=== PATIENT | female | born 1985 | race Caucasian/White ===

== ENCOUNTER 2019-04-25 14:48 | Emergency (ER) | payer MEDICAID ==
[~2019-04-25] VITALS: Ht 170.2 cm; Wt 88.6 kg
[2019-04-25 14:59] VITALS: Ht 170.2 cm; Wt 88.6 kg
[2019-04-25] MEDS ORDERED: OMNICEF300 MG PO (15:01)
[2019-04-25] MEDS ORDERED: TAMIFLU75 MG PO (15:01)
[2019-04-25] MEDS ORDERED: NAPROSYN500 MG PO (15:02)
[2019-04-25] MEDS ORDERED: BUTALB-APAP-CA1 EACH PO (15:03)
[2019-04-25] MEDS ORDERED: OXYBUTYNIN CHLOR5 MG PO (15:03)
[2019-04-25] MEDS ORDERED: MOBIC7.5 MG PO (15:03)
[2019-04-25 16:01] LABS: BASOPHILS 0.2 % (0-2); EOSINOPHILS 1.1 % (0-7); HEMATOCRIT 38.4 % (36.0-48.0); HEMOGLOBIN 13.4 g/dL (12-16); IMMATURE GRANULOCYTES 0.2 % (0-5); MCH 31.2 pg (26.0-34.0); MCHC 34.9 g/dL (31.0-37.0); MCV 89.5 fL (80.0-100.0); MONOCYTES 9.3 % (2-11); NEUTROPHILS 43.2 % (40-80); PLATELET COUNT 200 10x3/uL (130-400); RBC 4.29 10x6/uL (4.00-5.40); RDW 12.1 % (11.5-14.5); WBC 6.2 10x3/uL (4.8-10.8)
[2019-04-25 16:02] LABS: APPEARANCE CLEAR (CLEAR); BILIRUBIN NEGATIVE (NEGATIVE); COLOR STRAW (YELLOW); GLUCOSE NEGATIVE (NEGATIVE); KETONE NEGATIVE (NEGATIVE); NITRITE NEGATIVE (NEGATIVE); PROTEIN NEGATIVE (NEGATIVE); SPECIFIC GRAVITY 1.005 (1.005-1.020); UROBILINOGEN NORMAL (NORMAL)
[2019-04-25 16:12] LABS: CALC OSMOLALITY 281 mosm/kg (275-300); CARBON DIOXIDE 30.1 mmol/L (21.0-32.0); CHLORIDE - SERUM 106 mmol/L (98-107); CREATININE - SERUM 0.5 mg/dL (0.6-1.3); GLUCOSE 88 mg/dL (74-106); POTASSIUM - SERUM 3.7 mmol/L (3.5-5.1); SODIUM 143 mmol/L (136-145); UREA NITROGEN 7 mg/dL (7-18); eGFR NON AFRICAN AMERICAN > 90 mL/min (90-120)
[2019-04-25 16:19] LABS: ALKALINE PHOSPHATASE 72 U/L (46-116); ALT (SGPT) 26 U/L (10-68); BILIRUBIN - TOTAL 0.42 mg/dL (0.2-1.3); CREATINE KINASE 75 UL (21-215); PROTEIN - SERUM 7.5 g/dL (6.4-8.2)
[2019-04-25] MEDS ORDERED: ROBITUSSIN DM 110 ML PO (17:30)
[2019-04-25] MEDS ORDERED: PREDNISONE20 MG PO (17:30)
[2019-04-25 18:40] VITALS: BP 140/93
== END 2019-04-25 18:40 | disposition home or self-care (01) ==
LOC: D.ER 14:48
PROVIDERS: Family Medicine
DX: J02.9 Acute pharyngitis, unspecified (principal); H66.93 Otitis media, unspecified, bilateral

== ENCOUNTER 2019-04-29 19:25 | Emergency (ER) | payer MEDICAID ==
[~2019-04-29] VITALS: Ht 170.2 cm; Wt 88.6 kg
[~2019-04-29 19:25] MED LIST: BUTALB-APAP-CA1 EACH PO; MOBIC7.5 MG PO; NAPROSYN500 MG PO; OMNICEF300 MG PO; OXYBUTYNIN CHLOR5 MG PO; PREDNISONE20 MG PO; ROBITUSSIN DM 110 ML PO; TAMIFLU75 MG PO
[2019-04-29 19:45] VITALS: Ht 170.2 cm; Wt 88.6 kg
[2019-04-29 20:17] LABS: BASOPHILS 0.2 % (0-2); EOSINOPHILS 0.7 % (0-7); HEMATOCRIT 40.2 % (36.0-48.0); HEMOGLOBIN 14.3 g/dL (12-16); IMMATURE GRANULOCYTES 0.7 % (0-5); LYMPHOCYTES 48.9 % (15-50); MCH 31.6 pg (26.0-34.0); MCHC 35.6 g/dL (31.0-37.0); MCV 88.7 fL (80.0-100.0); MONOCYTES 8.7 % (2-11); NEUTROPHILS 40.8 % (40-80); RBC 4.53 10x6/uL (4.00-5.40); RDW 12.3 % (11.5-14.5); WBC 9.1 10x3/uL (4.8-10.8)
[2019-04-29 20:28] LABS: PLATELET COUNT 256 10x3/uL (130-400)
[2019-04-29 20:34] LABS: CALC OSMOLALITY 281 mosm/kg (275-300); CALCIUM 9.2 mg/dL (8.5-10.1); CARBON DIOXIDE 27.2 mmol/L (21.0-32.0); CHLORIDE - SERUM 106 mmol/L (98-107); CREATININE - SERUM 0.6 mg/dL (0.6-1.3); GLUCOSE 85 mg/dL (74-106); POTASSIUM - SERUM 3.6 mmol/L (3.5-5.1); SODIUM 143 mmol/L (136-145); UREA NITROGEN 8 mg/dL (7-18); eGFR NON AFRICAN AMERICAN > 90 mL/min (90-120)
[2019-04-29 20:39] LABS: ALBUMIN 4.1 g/dL (3.4-5.0); ALKALINE PHOSPHATASE 72 U/L (46-116); ALT (SGPT) 30 U/L (10-68); AMYLASE - SERUM 37 U/L (25-115); BILIRUBIN - TOTAL 0.48 mg/dL (0.2-1.3); LIPASE 104 U/L (73-393); PROTEIN - SERUM 7.7 g/dL (6.4-8.2); TROPONIN-I < 0.017 ng/mL (0.000-0.060)
[2019-04-29 22:36] LABS: APPEARANCE CLEAR (CLEAR); BILIRUBIN NEGATIVE (NEGATIVE); COLOR YELLOW (YELLOW); GLUCOSE NEGATIVE (NEGATIVE); KETONE NEGATIVE (NEGATIVE); NITRITE NEGATIVE (NEGATIVE); PROTEIN NEGATIVE (NEGATIVE); UROBILINOGEN NORMAL (NORMAL)
[2019-04-29 22:38] LABS: BACTERIA FEW /hpf (NEGATIVE); EPITHELIAL CELLS 0-5 /hpf (0-5); HCG URINE NEGATIVE (NEGATIVE); RED CELLS - URINE OCC /hpf (0-5)
[2019-04-29] MEDS ORDERED: MACROBID100 MG PO (23:52)
[2019-04-29] MEDS ORDERED: TORADOL10 MG PO (23:52)
[2019-04-29 23:58] VITALS: BP 141/87
== END 2019-04-30 01:12 | disposition home or self-care (01) ==
LOC: D.ER 19:25
PROVIDERS: Family Medicine
DX: G43.909 Migraine, unspecified, not intractable, without status migrainosus (principal); R10.11 Right upper quadrant pain; N39.0 Urinary tract infection, site not specified

== ENCOUNTER 2019-05-15 10:35 | Emergency (ER) | payer MEDICAID ==
[~2019-05-15] VITALS: Ht 170.2 cm; Wt 88.2 kg
[~2019-05-15 10:35] MED LIST changes: +MACROBID100 MG PO; +TORADOL10 MG PO
[2019-05-15 10:37] VITALS: Ht 170.2 cm; Wt 88.2 kg
[2019-05-15 11:45] LABS: BASOPHILS 0.2 % (0-2); EOSINOPHILS 0.8 % (0-7); HEMATOCRIT 40.1 % (36.0-48.0); HEMOGLOBIN 13.9 g/dL (12-16); IMMATURE GRANULOCYTES 0.2 % (0-5); LYMPHOCYTES 39.5 % (15-50); MCHC 34.7 g/dL (31.0-37.0); MCV 89.5 fL (80.0-100.0); MONOCYTES 8.4 % (2-11); NEUTROPHILS 50.9 % (40-80); PLATELET COUNT 267 10x3/uL (130-400); RBC 4.48 10x6/uL (4.00-5.40); RDW 12.3 % (11.5-14.5); WBC 6.5 10x3/uL (4.8-10.8)
[2019-05-15 11:55] LABS: CALC OSMOLALITY 279 mosm/kg (275-300); CALCIUM 9.1 mg/dL (8.5-10.1); CARBON DIOXIDE 28.9 mmol/L (21.0-32.0); CHLORIDE - SERUM 107 mmol/L (98-107); CREATININE - SERUM 0.6 mg/dL (0.6-1.3); GLUCOSE 79 mg/dL (74-106); POTASSIUM - SERUM 3.7 mmol/L (3.5-5.1); SODIUM 142 mmol/L (136-145); UREA NITROGEN 7 mg/dL (7-18); eGFR NON AFRICAN AMERICAN > 90 mL/min (90-120)
[2019-05-15 12:01] LABS: ALKALINE PHOSPHATASE 76 U/L (46-116); ALT (SGPT) 26 U/L (10-68); BILIRUBIN - TOTAL 0.41 mg/dL (0.2-1.3); PROTEIN - SERUM 7.6 g/dL (6.4-8.2)
[2019-05-15 12:41] LABS: APPEARANCE CLEAR (CLEAR); BILIRUBIN NEGATIVE (NEGATIVE); COLOR STRAW (YELLOW); GLUCOSE NEGATIVE (NEGATIVE); KETONE NEGATIVE (NEGATIVE); NITRITE NEGATIVE (NEGATIVE); PROTEIN NEGATIVE (NEGATIVE); UROBILINOGEN NORMAL (NORMAL)
[2019-05-15 12:42] LABS: WHITE CELLS - URINE 0-5 /hpf (NEGATIVE)
[2019-05-15 12:43] LABS: BACTERIA FEW /hpf (NEGATIVE); EPITHELIAL CELLS 0-5 /hpf (0-5)
[2019-05-15] MEDS ORDERED: CIPRO500 MG PO (13:00)
[2019-05-15 13:22] VITALS: BP 129/83
== END 2019-05-15 13:10 | disposition home or self-care (01) ==
LOC: D.ER 10:35
PROVIDERS: Emergency Medicine
DX: M54.2 Cervicalgia (principal)

== ENCOUNTER 2019-05-27 10:59 | Emergency (ER) | payer MEDICAID ==
[~2019-05-27] VITALS: Ht 170.2 cm; Wt 87.3 kg
[~2019-05-27 10:59] MED LIST changes: +CIPRO500 MG PO
[2019-05-27 11:16] VITALS: Ht 170.2 cm; Wt 87.3 kg
[2019-05-27 11:44] LABS: BASOPHILS 0.3 % (0-2); EOSINOPHILS 0.7 % (0-7); HEMATOCRIT 41.2 % (36.0-48.0); HEMOGLOBIN 14.4 g/dL (12-16); IMMATURE GRANULOCYTES 0.4 % (0-5); LYMPHOCYTES 31.7 % (15-50); MCH 31.6 pg (26.0-34.0); MCV 90.4 fL (80.0-100.0); MEAN PLATELET VOLUME 9.7 fL (7.4-10.4); MONOCYTES 7.5 % (2-11); NEUTROPHILS 59.4 % (40-80); PLATELET COUNT 255 10x3/uL (130-400); RBC 4.56 10x6/uL (4.00-5.40); RDW 12.5 % (11.5-14.5); WBC 9.8 10x3/uL (4.8-10.8)
[2019-05-27 11:49] LABS: CALC OSMOLALITY 274 mosm/kg (275-300); CALCIUM 8.9 mg/dL (8.5-10.1); CARBON DIOXIDE 28.3 mmol/L (21.0-32.0); CHLORIDE - SERUM 105 mmol/L (98-107); CREATININE - SERUM 0.6 mg/dL (0.6-1.3); GLUCOSE 89 mg/dL (74-106); POTASSIUM - SERUM 3.6 mmol/L (3.5-5.1); SODIUM 140 mmol/L (136-145); UREA NITROGEN 5 mg/dL (7-18); eGFR NON AFRICAN AMERICAN > 90 mL/min (90-120)
[2019-05-27 11:57] LABS: INR 1.05 (0.85-1.17); PROTIME 13.2 SECONDS (11.6-15.0)
[2019-05-27 11:58] LABS: APTT 36.1 SECONDS (22.8-39.4)
[2019-05-27 12:04] LABS: ALKALINE PHOSPHATASE 76 U/L (46-116); ALT (SGPT) 30 U/L (10-68); BILIRUBIN - TOTAL 0.61 mg/dL (0.2-1.3); CKMB 0.2 U/L (0.0-3.6); CREATINE KINASE 80 UL (21-215); MAGNESIUM - SERUM 1.9 mg/dL (1.8-2.4); PROTEIN - SERUM 7.9 g/dL (6.4-8.2)
[2019-05-27 12:06] LABS: TROPONIN-I < 0.017 ng/mL (0.000-0.060)
[2019-05-27] MEDS ORDERED: IBUPROFEN800 MG PO (15:11)
[2019-05-27] MEDS ORDERED: ACETAMINOPHEN500 M1 PO (15:11)
[2019-05-27] MEDS ORDERED: CYCLOBENZAPRINE10 MG PO (15:11)
[2019-05-27 15:41] VITALS: BP 127/84
== END 2019-05-27 15:42 | disposition home or self-care (01) ==
LOC: D.ER 10:59
PROVIDERS: Family Medicine
DX: R07.9 Chest pain, unspecified (principal); M79.602 Pain in left arm

== ENCOUNTER 2019-07-06 19:03 | Emergency (ER) | payer MEDICAID ==
[~2019-07-06] VITALS: Ht 170.2 cm; Wt 88.5 kg
[~2019-07-06 19:03] MED LIST changes: +ACETAMINOPHEN500 M1 PO; +CYCLOBENZAPRINE10 MG PO; +IBUPROFEN800 MG PO
[2019-07-06 19:18] VITALS: Ht 170.2 cm; Wt 88.5 kg
[2019-07-06 21:25] VITALS: BP 147/98
== END 2019-07-06 21:25 | disposition home or self-care (01) ==
LOC: D.ER 19:03
DX: J32.9 Chronic sinusitis, unspecified (principal); Z72.0 Tobacco use

== ENCOUNTER 2019-07-28 16:14 | Emergency (ER) | payer MEDICAID ==
[~2019-07-28] VITALS: Ht 170.2 cm; Wt 88.6 kg
[2019-07-28 16:25] VITALS: BP 143/96; Ht 170.2 cm; Wt 88.6 kg
[2019-07-28] MEDS ORDERED: PAMELOR10 MG PO (16:27)
[2019-07-28] MEDS ORDERED: ZOLOFT100 MG PO (16:29)
[2019-07-28] MEDS ORDERED: XANAX0.5 MG PO (16:29)
[2019-07-28] MEDS ORDERED: BUTALB-APAP-CA1 EACH PO (18:14)
[2019-07-28] MEDS ORDERED: MECLIZINE HCL25 MG PO (18:14)
== END 2019-07-28 18:32 | disposition home or self-care (01) ==
LOC: D.ER 16:14
DX: R42 Dizziness and giddiness (principal); J32.9 Chronic sinusitis, unspecified; G44.89 Other headache syndrome; Z72.0 Tobacco use

== ENCOUNTER 2019-09-14 19:47 | Emergency (ER) | payer MEDICAID ==
[~2019-09-14] VITALS: Ht 170.2 cm; Wt 91.2 kg
[~2019-09-14 19:47] MED LIST changes: +MECLIZINE HCL25 MG PO; +PAMELOR10 MG PO; +XANAX0.5 MG PO; +ZOLOFT100 MG PO
[2019-09-14 19:54] VITALS: Ht 170.2 cm; Wt 91.2 kg
[2019-09-14] MEDS ORDERED: PREDNISONE20 MG PO (20:02)
[2019-09-14] MEDS ORDERED: DOXYCYCLINE HY100 M2 PO (20:02)
[2019-09-14] MEDS ORDERED: SUDAFED 30 MG T30 MG PO (20:03)
[2019-09-14 22:40] VITALS: BP 126/87
== END 2019-09-14 22:40 | disposition home or self-care (01) ==
LOC: D.ER 19:47
DX: J32.9 Chronic sinusitis, unspecified (principal); Z72.0 Tobacco use

== ENCOUNTER → 2020-09-29 10:53 | Outpatient (CLI) | payer MEDICAID ==
[2020-07-08 10:55] VITALS: BMI 30.6
--- NOTE | ~2020-09-29 | EC ---
PATIENT:DANY JOYCE DATE OF SERVICE: 09/29/20 SEX: F MEDICAL RECORD: [id number] DATE OF : [birth year] [facility] AGE OF PATIENT: 35 ADMISSION DATE: 09/29/20 REFERRING PHYSICIAN: INTERPRETING PHYSICIAN: SHANIQUE SOLIS MD ECHOCARDIOGRAM REPORT ECHO CHARGES 4 ECHO COMPLETE Date: 09/29/20 CLINICAL DIAGNOSIS: DYSPNEA/CHEST PAIN, LOWER EDEMA/ ASSESS EF ECHOCARDIOGRAPHIC MEASUREMENTS (adult normal given) AC root (d.<3.7cm) 3.3 cm LV Septum d (<1.2 cm> 1.1 cm Valve Excursion 1.2 cm LV Septum (systole) 1.8 cm Left Atria (s.<4.0cm> 3.8 cm LVPW d(<1.2cm) 1.3 cm RV (d.<2.3cm) 3.8 cm LVPW (sytole) 1.7 cm LV diastole(<5.6CM) 4.8 cm MV E-F(>70mm/sec) cm LV systole 2.6 cm LVOT Diameter 2.0 cm MV exc.(>10mm) 1.3 cm Est.ejection fraction (50-75%) % DOPPLER: LVIT cm/sec A 58.0 cm/sec E 71.0 cm/sec LA cm/sec RVSP 15 mmHg LVOT 95 cm/sec AOP1/2T m/s Asc. Ao 133 cm/sec RVOT 83 cm/sec RA cm/sec PA 98 cm/sec AV Gradient Peak 7.02 mmHg AV Mean 3.82 mmHg AV Area 2.5 cm MV Gradient Peak mmHg MV Mean mmHg MV Area cm COMMENTS: Machine Setter Automatic: 2 PRIMITIVO NGUYỄN Live Study Manager: 3 Dr. Harding TAPE# PACS Pericardial Effusion N DATE OF SERVICE: Adequate 2D, color-flow imaging, spectral Doppler, and M-Mode FINDINGS: Borderline LVH. LV internal dimension is normal. Wall motion is normal. EF is greater than or equal to 55%. Aortic valve is tricuspid. No evidence of stenosis by Doppler interrogation. Left atrium is normal. Mitral valve shows no prolapse. Trivial MR. Right side is grossly normal. Trivial TR. ECHOCARDIOGRAM REPORT [id number] DANY JOYCE TRANSINT:[id number] Voice Confirmation ID: [id number] DOCUMENT ID: [id number] SHANIQUE SOLIS MD CC: [id number] DICTATION DATE: 09/30/20 1334 CHAIN PEGGER: 09/30/20 1454 DEP CLI 09/29/20 [place] [id number] [place] [id number]
[~2020-09-29 10:53] MED LIST changes: +DOXYCYCLINE HY100 M2 PO; +SUDAFED 30 MG T30 MG PO
== END | disposition home or self-care (01) ==
LOC: D.HCCECHO 10:53
PROVIDERS: ATTEND Internal Medicine Interventional Cardiology
DX: R06.00 Dyspnea, unspecified (principal)